=== PATIENT | male | born 1975 | race Hispanic/Latino ===

== ENCOUNTER 2017-09-29 00:54 | Emergency (ER) | payer OTHER ==
[~2017-09-29] VITALS: Ht 167.6 cm; Wt 96.6 kg
[~2017-09-29 00:54] MED LIST: AMLODIPINE BESYL5 M1 PO; IBUPROFEN800 M1 PO; LOVASTATIN10 M1 PO
[2017-09-29 01:06] VITALS: BP 166/80
--- NOTE | 2017-09-29 01:33 | ED NECK/BACK PAIN COMPLAINT ---
History of Present Illness General Chief Complaint: Low Back Pain/Injury Stated Complaint: LOWER BACK PAIN X 4 DAYS Source: patient, old records, friend Exam Limitations: language barrier Vital Signs & Intake/Output Vital Signs & Intake/Output Vital Signs Date Time Temp Pulse Resp B/P B/P Pulse O2 O2 Flow FiO2 Mean Ox Delivery Rate 09/29 0106 98.1 93 18 166/80 97 Room Air Allergies Coded Allergies: No Known Allergies (09/29/17) Reconcile Medications Amlodipine Besylate 5 MG TABLET 1 TAB PO DAILY HTN (Reported) Lovastatin 10 MG TABLET 1 TAB PO DAILY CHOL (Reported) Triage Note: TRIAGE: PATIENT TO ER FROM HOME REPORTING 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 *PATIENT SPEAKS BOLIVIAN, REQUESTED TO RN FOR FRIEND TO TRANSLATE FOR HIM. Triage Nurses Notes Reviewed? yes Onset: Last week Duration: day(s):, constant, continues in ED Timing: recent history Quality/Severity: severe, radiation, sharpness Location: lumbar spine, paraspinous muscles Radiation: buttocks, upper legs Context: lifting, turning/bending Method of Injury: prior injury, twisted Loss of Consciousness: no loss of consciousness Modifying Factors: immobilization, movement, rest Associated Symptoms: muscle spasm, trouble walking HPI: 5 days prior to admission the patient was picking up boxes of jeans and felt a sharp pain in his lower back. The pain has been constant radiating to buttocks and upper legs worse with range of motion ambulation little relief from Tylenol and Motrin. Reports annual episodes of low back pain. He denies fever chills nausea vomiting diarrhea abdominal pain chest pain shortness of breath headache dysuria rash bleeding change in motor sensory function change in bowel bladder habit. Past History Travel History Traveled to [place] past 21 day No Medical History Any Pertinent Medical History? see below for history Neurological: NONE EENT: NONE Cardiovascular: hypertension, hyperlipidemia Respiratory: NONE Gastrointestinal: NONE Hepatic: NONE Renal: NONE Musculoskeletal: NONE Psychiatric: NONE Endocrine: NONE Blood Disorders: NONE Cancer(s): NONE SALES OPERATIONS CONSULTANT/Reproductive: NONE Surgical History Surgical History: non-contributory Psychosocial History What is your primary language [place] Tobacco Use: Never used Family History Hx Contributory? No Review of Systems Review of Systems Constitutional: Reports: no symptoms. Eyes: Reports: no symptoms. Ears, Nose, Throat, Mouth: Reports: no symptoms. Respiratory: Reports: no symptoms. Cardiovascular: Reports: no symptoms. Gastrointestinal/Abdominal: Reports: no symptoms. Musculoskeletal: Reports: see HPI, back pain. Skin: Reports: no symptoms. Neurological/Psychological: Reports: no symptoms. All Other Systems: Reviewed and Negative Physical Exam Physical Exam General Appearance: well developed/nourished, alert, awake, moderate distress, obese Head: atraumatic, normal appearance Eyes: Bilateral: normal appearance, PERRL, EOMI, normal inspection. Ears, Nose, Throat, Mouth: hearing grossly normal, moist mucous membrane Neck: normal inspection, supple, full range of motion, normal alignment Respiratory: normal breath sounds, chest non-tender, no respiratory distress, quiet respiration, lungs clear Cardiovascular: regular rate/rhythm, normal peripheral pulses, norml femoral pulses equa Peripheral Pulses: 4+ carotid (R), 4+ carotid (L) Gastrointestinal: normal bowel sounds, soft, non-tender, no organomegaly Back: normal inspection, normal range of motion, no vertebral tenderness Extremities: non-tender, normal range of motion Straight Leg Raising: Right: Pain at ____ degrees (5). Left: Pain at ____ degrees (5). Sensory: Medial Le: L4R, L4L. Top of Foot: 2: L5R, L5L. Sole of Foot: 2: SIR, SALAZAR. Motor: Deficit L4 Right: No Deficit L4 Left: No Deficit L5 Right: No Deficit L5 Left: No Deficit S1 Right: No Deficit S1 Right: No Ext. Big Toe: 3: L5 Left, L5 Right. DTR: Deficit L4 Left: No Deficit L4 Right: No Deficit S1 Left: No Deficit S1 Right: No Patellar: 3: L4 Right, L4 Left. 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 Discussed w/RAD: Radiology Read. Radiology Impression: Mild lower lumbar spine degenerative change without evidence of acute injury. Departure Departure Time of Disposition: 247 Disposition: HOME OR SELF CARE Condition: Stable Clinical Impression Primary Impression: Sciatica associated with disorder of lumbar spine Referrals: Ran Minaya MD (PCP/Family) Departure Forms: Customer Survey General Discharge Information Industrial Accident Report Prescriptions: Current Visit Scripts Ibuprofen 1 TAB PO Q6P PRN pain #30 TAB with food Cyclobenzaprine HCl 1 TAB PO TID PRN muscle strain #30 TAB Lidocaine (Lidoderm) 1 PAT TOP DAILY PRN pain #30 PAT may wear up to 12 hours Oxycodone HCl/Acetaminophen (Percocet 5-325 MG Tablet) 1-2 TAB PO Q6P PRN severe pain #15 TAB
--- NOTE | 2017-09-29 02:20 | RADIOLOGY REPORT ---
EXAMINATION: LUMBOSACRAL SPINE 3 VIEWS CLINICAL INFORMATION: Low back pain. Sciatica. COMPARISON: None. TECHNIQUE: AP, lateral, spot lateral views of the lumbosacral spine are provided. FINDINGS: There are no fractures. The lumbar vertebrae are in normal alignment. There is mild disc height loss at L5/S1. There is mild anterior osteophyte formation. Disc heights and vertebral body heights are otherwise well-preserved. IMPRESSION: Mild lower lumbar spine degenerative change without evidence of acute injury.
[2017-09-29] MEDS ORDERED: LIDODERM1 EACH TOP (02:50)
[2017-09-29] MEDS ORDERED: PERCOCET 5-3251 EACH PO (02:50)
[2017-09-29] MEDS ORDERED: CYCLOBENZAPRINE10 M1 PO (02:50)
[2017-09-29] MEDS ORDERED: IBUPROFEN600 M1 PO (02:50)
== END 2017-09-29 02:59 ==
LOC: ERH 00:54
DX: M54.40 Lumbago with sciatica, unspecified side (principal)
CPT/HCPCS: 72110